=== PATIENT | female | born 1990 | race African-American/Black ===

== ENCOUNTER 2019-06-15 19:56 | Emergency (ER) | payer SELFPAY ==
[2019-06-15] MEDS ORDERED: Lidocaine 1% (PF) 30 ML VIAL ONE (22:01)
== END 2019-06-15 22:56 | disposition home or self-care (01) ==
LOC: ERS 19:56
DX: L02.01 Cutaneous abscess of face (principal); I10 Essential (primary) hypertension; F17.290 Nicotine dependence, other tobacco product, uncomplicated
CPT/HCPCS: 10060; J2001